=== PATIENT | female | born 1980 | race Two or more races ===

== ENCOUNTER 2018-12-03 07:41 | Outpatient (CLI) | payer OTHER | END 2018-12-03 07:45 | disposition home or self-care (01) | LOC: SONOGRAMA 07:41 | DX: E04.1 Nontoxic single thyroid nodule (principal) ==

== ENCOUNTER 2025-03-07 09:05 | Emergency (ER) | payer OTHER ==
[~2025-03-07] VITALS: Ht 154.9 cm; Wt 53.1 kg
[2025-03-07] MEDS ORDERED: ACETAMINOPHEN 325 MG TABLET PO ONE (10:15)
[2025-03-07] MEDS ORDERED: 0.9 % SODIUM CHLORIDE 1,000 ML IV SCH (10:15)
[2025-03-07] MEDS ORDERED: ACETAMINOPHEN 500 MG GEL..CAP PO ONE (10:49)
[2025-03-07 11:34] LABS: BASO % 1.2 % (0.1-1.2); EOS # 0.14 (0.04-0.54); EOS % 2.8 % (0.7-7.0); LYMPH # 1.58 (1.18-3.74); LYMPH % 31.8 % (19.3-53.1); MEAN PLATELET VOLUME 10.60 fl (9.4-12.4); MONO # 0.32 (0.24-0.82); MONO % 6.4 % (4.7-12.5); NEUT # 2.86 (1.56-6.13); NEUT % 57.6 % (34.0-71.1); RED CELL DISTRIBUTION WIDTH 14.5 % (11.6-14.4)
[2025-03-07 12:30] LABS: BUN CREA RATIO 23.0 (7.0-25.0); CREATININE SERUM 0.75 mg/dL (0.55-1.02); GFR 83.56; GLUCOSE FASTING 96.0 mg/dL (65-100); OSMOLALITY SERUM 281.0 MOSM/KG (275-295)
[2025-03-07 12:34] LABS: HCG QUANTITATIVE 1382.0 mUI/mL (1-3)
== END 2025-03-07 22:06 | disposition home or self-care (01) ==
LOC: ER 09:06
PROVIDERS: General Practice
DX: O20.8 Other hemorrhage in early pregnancy (principal); Z3A.01 Less than 8 weeks gestation of pregnancy; N93.9 Abnormal uterine and vaginal bleeding, unspecified; Z91.013 Allergy to seafood